=== PATIENT | female | born 1985 | race Caucasian/White ===

== ENCOUNTER → 2016-05-25 | Outpatient (CLI) | payer OTHER ==
[~2016-05-25] MED LIST: ALBU1AER9; ASMTWH INH; CPRUNK; LVNIS40 SQ
[2016-05-25 16:53] LABS: URINE APPEARANCE CLOUDY (CLEAR); URINE BILIRUBIN NEG (NEG); URINE COLOR YELLOW; URINE EPITHELIAL CELL AUTO >30 /lpf (0-5); URINE NITRITE NEG (NEG); URINE PH 6.5 (4.5-7.5); URINE SPECIFIC GRAVITY 1.018 (1.000-1.030); UROBILINOGEN NEG (NEG)
[2016-05-25 16:54] LABS: MANUAL MICROSCOPIC REQUIRED? NO; REVIEW REQ? NO
== END | disposition home or self-care (01) ==
LOC: C.LABSPEC 15:36
PROVIDERS: ATTEND Obstetrics & Gynecology
DX: Z34.82 Encounter for supervision of other normal pregnancy, second trimester (principal)

== ENCOUNTER → 2016-05-28 | Outpatient (CLI) | payer OTHER ==
[2016-05-28 10:25] LABS: BASO % 0.1 %; BASO ABS # 0.01 K/uL (0-0.2); COMPLETE YES; EOS % 1.1 %; HEMATOCRIT 38.5 % (37-47); IG% 0.2 %; LYMPH % 22.1 %; LYMPH ABS # 2.31 K/uL (1.2-3.4); MEAN CELL VOLUME 91.9 fL (80-100); MEAN CORPUSCULAR HEMOGLOBIN 32.2 pg (25-34); MEAN CORPUSCULAR HGB CONC 35.1 g/dl (32-36); MEAN PLATELET VOLUME 10.9 fL (7.4-10.4); MONO % 4.9 %; NEUT % 71.6 %; PLATELET COUNT 228 K/uL (130-400); RED BLOOD COUNT 4.19 M/uL (4.2-5.4); WHITE BLOOD COUNT 10.45 K/uL (4.8-10.8)
[2016-06-01 15:37] LABS: CHLAMYDIA TRACH RNA*** NOT DETECTED (NOT DETECTED); GC (NEIS GONORRHOEAE)RNA** NOT DETECTED (NOT DETECTED)
== END | disposition home or self-care (01) ==
LOC: C.LAB1850 09:06
PROVIDERS: ATTEND Obstetrics & Gynecology
DX: Z34.82 Encounter for supervision of other normal pregnancy, second trimester (principal)

== ENCOUNTER → 2016-07-20 | Outpatient (CLI) | payer OTHER | END | disposition home or self-care (01) | LOC: C.LABSPEC 10:42 | PROVIDERS: ATTEND Obstetrics & Gynecology | DX: N89.8 Other specified noninflammatory disorders of vagina (principal) ==

== ENCOUNTER → 2016-08-10 | Outpatient (CLI) | payer OTHER ==
[2016-08-10 12:33] LABS: MANUAL MICROSCOPIC REQUIRED? NO; REVIEW REQ? YES; URINE APPEARANCE CLOUDY (CLEAR); URINE BILIRUBIN NEG (NEG); URINE COLOR YELLOW; URINE EPITHELIAL CELL AUTO >30 /lpf (0-5); URINE NITRITE NEG (NEG); UROBILINOGEN NEG (NEG)
[2016-08-10 13:07] LABS: HEMATOCRIT 36.5 % (37-47)
[2016-08-10 13:58] LABS: GTGD 50 Grams
== END | disposition home or self-care (01) ==
LOC: C.LAB1850 10:26
PROVIDERS: ATTEND Internal Medicine
DX: O09.92 Supervision of high risk pregnancy, unspecified, second trimester (principal)

== ENCOUNTER → 2016-08-20 | Outpatient (CLI) | payer OTHER | END | disposition home or self-care (01) | LOC: C.LAB1850 07:08 | PROVIDERS: ATTEND Obstetrics & Gynecology | DX: O09.93 Supervision of high risk pregnancy, unspecified, third trimester (principal) ==

== ENCOUNTER → 2016-08-27 | Outpatient (CLI) | payer OTHER ==
[2016-08-27 09:49] LABS: PATIENT HEIGHT 165.1 cm
[2016-08-27 10:47] LABS: URINE TOTAL PROTEIN 9.9 mg/dl (0-11.9)
[2016-08-27 11:45] LABS: URINE TOTAL PROTEIN CALC 236.6 mg/24 hr (0-149.1)
[2016-08-27 12:32] LABS: CREATININE 0.47 mg/dl (0.6-1.2)
== END | disposition home or self-care (01) ==
LOC: C.LAB1850 08:10
PROVIDERS: ATTEND Obstetrics & Gynecology
DX: R63.2 Polyphagia (principal); E83.59 Other disorders of calcium metabolism; E16.1 Other hypoglycemia; O09.93 Supervision of high risk pregnancy, unspecified, third trimester; E72.12 Methylenetetrahydrofolate reductase deficiency

== ENCOUNTER → 2016-09-10 | Outpatient (CLI) | payer OTHER ==
[2016-09-10 08:24] LABS: PATIENT HEIGHT 165.1 cm
[2016-09-10 09:37] LABS: BASO % 0.1 %; BASO ABS # 0.01 K/uL (0-0.2); COMPLETE YES; EOS % 0.8 %; HEMATOCRIT 38.4 % (37-47); IG% 0.3 %; LYMPH % 18.7 %; LYMPH ABS # 2.07 K/uL (1.2-3.4); MEAN CELL VOLUME 93.2 fL (80-100); MEAN CORPUSCULAR HEMOGLOBIN 30.3 pg (25-34); MEAN CORPUSCULAR HGB CONC 32.6 g/dl (32-36); MEAN PLATELET VOLUME 10.3 fL (7.4-10.4); MONO % 6.1 %; PLATELET COUNT 241 K/uL (130-400); RED BLOOD COUNT 4.12 M/uL (4.2-5.4); WHITE BLOOD COUNT 11.09 K/uL (4.8-10.8)
[2016-09-10 10:08] LABS: ALT/SGPT 22 U/L (12-78); AST/SGOT 10 U/L (15-37); CREATININE 0.47 mg/dl (0.60-1.20)
[2016-09-10 10:09] LABS: ALKALINE PHOSPHATASE 75 U/L (45-117); URIC ACID 4.1 mg/dl (2.6-7.2)
[2016-09-10 11:14] LABS: CREATININE 0.47 mg/dl (0.6-1.2); URINE TOTAL PROTEIN CALC 214.5 mg/24 hr (0-149.1)
== END | disposition home or self-care (01) ==
LOC: C.LAB1850 08:15
PROVIDERS: ATTEND Obstetrics & Gynecology
DX: O13.9 Gestational [pregnancy-induced] hypertension without significant proteinuria, unspecified trimester (principal)

== ENCOUNTER → 2016-10-05 | Outpatient (CLI) | payer OTHER ==
[2016-10-05 14:38] LABS: COMPLETE YES; HEMATOCRIT 36.4 % (37-47); IG% 0.3 %; LYMPH % 23.6 %; LYMPH ABS # 2.46 K/uL (1.2-3.4); MEAN CELL VOLUME 91.7 fL (80-100); MEAN CORPUSCULAR HGB CONC 33.8 g/dl (32-36); MEAN PLATELET VOLUME 10.8 fL (7.4-10.4); NEUT % 69.1 %; PLATELET COUNT 231 K/uL (130-400); RED BLOOD COUNT 3.97 M/uL (4.2-5.4); WHITE BLOOD COUNT 10.41 K/uL (4.8-10.8)
[2016-10-05 14:58] LABS: ALT/SGPT 19 U/L (12-78); BLOOD UREA NITROGEN 10 mg/dl (7-18); BUN/CREATININE RATIO 18.8 (10-20); CALCIUM 9.6 mg/dl (8.5-10.1); CARBON DIOXIDE 22 mmol/L (21-32); CHLORIDE 105 mmol/L (98-107); CREATININE 0.51 mg/dl (0.60-1.20); GLUCOSE 88 mg/dl (70-99); POTASSIUM 3.9 mmol/L (3.5-5.1); SODIUM 138 mmol/L (136-145)
[2016-10-05 15:01] LABS: ALB/GLOB RATIO 0.6 (0.9-2); ALKALINE PHOSPHATASE 91 U/L (45-117); AST/SGOT 13 U/L (15-37)
== END | disposition home or self-care (01) ==
LOC: C.LAB1850 13:30
PROVIDERS: ATTEND Obstetrics & Gynecology
DX: O13.3 Gestational [pregnancy-induced] hypertension without significant proteinuria, third trimester (principal)

== ENCOUNTER → 2016-10-08 | Outpatient (CLI) | payer OTHER | END | disposition home or self-care (01) | LOC: C.LABSPEC 17:27 | PROVIDERS: ATTEND Obstetrics & Gynecology | DX: O09.93 Supervision of high risk pregnancy, unspecified, third trimester (principal); Z3A.00 Weeks of gestation of pregnancy not specified ==

== ENCOUNTER → 2016-10-15 | Outpatient (CLI) | payer OTHER ==
[2016-10-15 13:13] LABS: HEMATOCRIT 39.1 % (37-47); MEAN CELL VOLUME 91.6 fL (80-100); MEAN CORPUSCULAR HEMOGLOBIN 30.9 pg (25-34); MEAN CORPUSCULAR HGB CONC 33.8 g/dl (32-36); MEAN PLATELET VOLUME 10.8 fL (7.4-10.4); PLATELET COUNT 254 K/uL (130-400); RED BLOOD COUNT 4.27 M/uL (4.2-5.4); WHITE BLOOD COUNT 10.94 K/uL (4.8-10.8)
[2016-10-15 13:45] LABS: ALB/GLOB RATIO 0.6 (0.9-2); ALKALINE PHOSPHATASE 106 U/L (45-117); ALT/SGPT 18 U/L (12-78); AST/SGOT 12 U/L (15-37); BLOOD UREA NITROGEN 10 mg/dl (7-18); CALCIUM 9.6 mg/dl (8.5-10.1); CARBON DIOXIDE 24 mmol/L (21-32); CHLORIDE 105 mmol/L (98-107); CREATININE 0.52 mg/dl (0.60-1.20); GLUCOSE 67 mg/dl (70-99); SODIUM 137 mmol/L (136-145)
== END | disposition home or self-care (01) ==
LOC: C.LAB1850 11:43
PROVIDERS: ATTEND Obstetrics & Gynecology
DX: O13.3 Gestational [pregnancy-induced] hypertension without significant proteinuria, third trimester (principal)

== ENCOUNTER 2016-10-20 12:03 | Inpatient (IN) | payer OTHER ==
[~2016-10-20] VITALS: Ht 165.1 cm; Wt 100.9 kg
[~2016-10-20 12:03] MED LIST changes: -LVNIS40 SQ
[2016-10-22] MEDS ORDERED: LACTATED RINGER'S 1000ML 1,000 ML IV PRN (13:14)
[2016-10-22] MEDS ORDERED: ONDANSETRON INJ 2 MG/ML 2 ML VIAL IV PRN ×2 (14:00→18:15)
[2016-10-22 14:08] LABS: MEAN CORPUSCULAR HGB CONC 33.8 g/dl (32-36); MEAN PLATELET VOLUME 10.5 fL (7.4-10.4); PLATELET COUNT 237 K/uL (130-400); RED BLOOD COUNT 4.35 M/uL (4.2-5.4)
[2016-10-22 14:28] LABS: ALT/SGPT 16 U/L (12-78); BLOOD UREA NITROGEN 9 mg/dl (7-18); BUN/CREATININE RATIO 17.4 (10-20); CALCIUM 9.7 mg/dl (8.5-10.1); CARBON DIOXIDE 24 mmol/L (21-32); CHLORIDE 105 mmol/L (98-107); GLUCOSE 77 mg/dl (70-99); SODIUM 138 mmol/L (136-145)
[2016-10-22 14:31] LABS: ALB/GLOB RATIO 0.6 (0.9-2); ALKALINE PHOSPHATASE 99 U/L (45-117); AST/SGOT 10 U/L (15-37)
[2016-10-22 14:55] VITALS: Ht 165.1 cm; Wt 100.9 kg
[2016-10-22] MEDS ORDERED: BUPIVACAINE 0.25% 30 ML VIAL ONE (16:59)
[2016-10-22] MEDS ORDERED: FENTANYL CITRATE INJ 50 MCG/1 ML 2 ML VIAL ONE (17:00)
[2016-10-22] MEDS ORDERED: FENTANYL 2MCG/ML ROPIV 1.25MG/ML 100ML BAG EPI ONE (17:00)
[2016-10-22] MEDS ORDERED: EpHEDrine SULFATE INJ 50 MG/ML AMP ONE (17:00)
[2016-10-22] MEDS: LACTATED RINGER'S 1000ML 1,000 ML IV SCH ×2 (17:59→19:10)
[2016-10-22] MEDS ORDERED: LACTATED RINGER'S 1000ML 500 ML IV PRN ×2 (18:00→18:12)
[2016-10-22] MEDS ORDERED: OXYTOCIN 30 UNITS/500ML NSS IV PRN ×2 (18:00→23:00)
[2016-10-22] MEDS ORDERED: NALOXONE HCL INJ 1 MG in SODIUM CHLORIDE 0.9% 1000ML 1,000 ML IV PRN (18:12)
[2016-10-22] MEDS ORDERED: FENTANYL 2MCG/ML ROPIV 1.25MG/ML 100ML BAG EPI PRN (18:15)
[2016-10-22] MEDS ORDERED: NALBUPHINE HCL INJ 10 MG/ML AMP IV PRN (18:15)
[2016-10-22] MEDS ORDERED: EpHEDrine SULFATE INJ 50 MG/ML AMP IV PRN (18:15)
[2016-10-22] MEDS ORDERED: PROMETHAZINE HCL INJ 6.25 MG in SODIUM CHLORIDE 0.9% 50ML 50 ML IV PRN (18:15)
[2016-10-22] MEDS ORDERED: NALOXONE HCL INJ 0.4 MG/1 ML VIAL/CARP IV PRN (18:15)
[2016-10-22] MEDS ORDERED: DiphenhydrAMINE HCL 50 MG/ML VIAL IV PRN (18:15)
[2016-10-22] MEDS ORDERED: SUPERCREAM 0.870 % 15GM JAR EXT PRN (23:00)
[2016-10-22] MEDS ORDERED: HYDROCORTISONE ACETATE 25 MG SUPP PR PRN (23:00)
[2016-10-22] MEDS ORDERED: LANOLIN OINT EXT PRN ×2 (23:00)
[2016-10-22] MEDS ORDERED: BENZOCAINE 20% AER SPR 82.5 GM CAN EXT PRN (23:00)
[2016-10-22] MEDS ORDERED: OXYCODONE/ACETAMINOPHEN 5-325 TAB PO PRN (23:00)
--- NOTE | 2016-10-22 23:21 | Anesthesia Procedure Note ---
Anesthesia Epidural Removal Nt Date & Time Oct 22, 2016 at 23:21 Vital Signs Pain Intensity: 0.0 Notes Mental Status: alert / awake / arousable, participated in evaluation Nausea / Vomiting: adequately controlled Pain: adequately controlled Airway Patency, RR, SpO2: stable & adequate BP & HR: stable & adequate Hydration State: stable & adequate Neuraxial Anesthesia: was administered Anesthetic Complications: no major complications apparent, pt satisfied with anesthetic care Epidural: removed without complications, with tip intact
[2016-10-23] VITALS (7 sets, daily range): BP systolic 112–133; BP diastolic 74–83; PULSE 84–101; TEMP 36.5–37; O2SAT 96–97
[2016-10-23] MEDS: IBUPROFEN 600 MG TAB PO PRN ×4 (05:47→19:03)
[2016-10-23 07:19] LABS: HEMATOCRIT 36.9 % (37-47)
[2016-10-23 07:35] LABS: PROTHROMBIN TIME (PATIENT) 10.4 SECONDS (9.0-12.0)
--- NOTE | 2016-10-23 08:07 | OB/GYN Progress Note ---
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 Subjective conversation w/ patient, physical exam, chart review, lab review Ambulation: limited ambulation (to bathroom) Voiding: no voiding problems Passing Gas: Yes Diet Tolerance: Regular Diet Lochia: Small Feeding Type: Breast Feeding Pain: Denies much pain/cramping Review of Systems Constitutional: No fever, No chills Respiratory: No cough, No shortness of breath Cardiac: No chest pain Abdomen: No nausea, No vomiting, No diarrhea Female : No dysuria Objective Vital Signs Date Time Temp Pulse Resp B/P (MAP) Pulse Ox O2 Delivery O2 Flow Rate FiO2 10/23/16 03:10 36.7 84 20 119/77 (91) 97 Room Air 10/23/16 02:45 36.9 84 16 115/74 (88) 96 Room Air 10/23/16 01:30 37.0 96 16 114/76 (89) 96 Room Air 10/23/16 01:30 96 Room Air Physical Exam General Appearance: WELL-APPEARING, WD/WN, NO APPARENT DISTRESS Respiratory/Chest: no respiratory distress Cardiovascular: regular rate, rhythm Abdomen: non tender, soft Fundus: Firm, Tender (minimal, appropriate), Relation to Umbilicus (at umbilicus) Extremities: normal range of motion, non-tender, no pedal edema, no calf tenderness Exam by Dr. Diane Laboratory Results Last 24 Hours Test 10/22/16 13:55 10/23/16 06:34 White Blood Count 12.00 K/uL Red Blood Count 4.35 M/uL Hemoglobin 13.5 g/dL 12.2 g/dL Hematocrit 40.0 % 36.9 % Mean Corpuscular Volume 92.0 fL Mean Corpuscular Hemoglobin 31.0 pg Mean Corpuscular Hemoglobin Concent 33.8 g/dl RDW Standard Deviation 44.1 fL RDW Coefficient of Variation 13.1 % Platelet Count 237 K/uL Mean Platelet Volume 10.5 fL Sodium Level 138 mmol/L Potassium Level 4.0 mmol/L Chloride Level 105 mmol/L Carbon Dioxide Level 24 mmol/L Anion Gap 9.0 mmol/L Blood Urea Nitrogen 9 mg/dl Creatinine 0.50 mg/dl Estimated GFR () 147.4 Estimated GFR (Non- 127.2 BUN/Creatinine Ratio 17.4 Random Glucose 77 mg/dl Calcium Level 9.7 mg/dl Total Bilirubin 0.5 mg/dl Aspartate Amino Transf (AST/SGOT) 10 U/L Alanine Aminotransferase (ALT/SGPT) 16 U/L Alkaline Phosphatase 99 U/L Total Protein 6.8 gm/dl Albumin 2.6 gm/dl Globulin 4.2 gm/dl Albumin/Globulin Ratio 0.6 Prothrombin Time 10.4 SECONDS Prothromb Time International Ratio 1.0 Assessment and Plan Post- Day Number: 1 Continue Routine Care: 31yo s/p vaginal delivery, now PPD #1. - Blood type O positive. GBS negative. Rubella immune. - Vital signs reviewed and stable. - Pain controlled with motrin. - No leg swelling or tenderness on calf palpation. Encourage ambulation. - Encourage breast feeding. - Hemoglobin pre-delivery 13.5, post-delivery 12.2. Bleeding has improved. Continue to monitor clinically. - Continue post-vaginal delivery care. Resume lovenox this morning, plan x 6 weeks post-. - Pt agreed with above plan, all current questions answered. Don Salazar MD, PGY1 Service Center Manager Physician Supervision Note: I was present with Dr. Salazar during the history and exam. I discussed the case with the resident and agree with the findings and plan as documented in the note. Any exceptions or clarifications are listed here: PPD#1 doing well. Continue routine care. Documented By: Brenda Diane Resident Tracking Resident Involvement: Resident Care Provided Care Provided: OB Delivery (morning rounds)
[2016-10-23] MEDS: DOCUSATE SODIUM 100 MG CAP PO SCH ×2 (08:26→19:03)
[2016-10-23] MEDS: PRENATAL VITAMIN TAB PO SCH (08:26)
[2016-10-23] MEDS: ENOXAPARIN 40 MG/0.4 ML SYR SQ SCH (08:29)
--- NOTE | 2016-10-23 09:00 | DELIVERY SUMMARY ---
DATE OF OPERATION: 10/22/2016 DATE OF DELIVERY: 10/22/2016 PREDELIVERY DIAGNOSES: 1. 31-year-old G4, P2-0-1-2 at 38 weeks 2 days. 2. Induction of labor secondary to gestational hypertension. 3. History of pulmonary embolism at age 15 while on combined oral contraceptives. POSTDELIVERY DIAGNOSES: 1. 31-year-old G4, P2-0-1-2 at 38 weeks 2 days. 2. Induction of labor secondary to gestational hypertension. 3. History of pulmonary embolism at age 15 while on combined oral contraceptives. PROCEDURE: Spontaneous vaginal delivery and repair of first degree perineal laceration. DELIVERING PHYSICIAN: Dr. Brenda Diane. FINDINGS: Viable male with Apgars 8 and 9, weight pending. Please see nursing records with true double knot in umbilical cord. DESCRIPTION OF PROCEDURE: The patient progressed to complete under epidural anesthesia. She then began to push and spontaneously vaginally delivered a viable male from the cephalic presentation. The head delivered in the left occiput anterior position followed by the anterior then posterior shoulder followed by the body. The umbilical cord was unwound from the baby's body and the baby was placed on mother's abdomen. Cord was doubly clamped and cut and spontaneous cry was heard. The baby was handed off to the awaiting pediatrics nurse. Cord segment was obtained. Cord blood was obtained and the placenta delivered spontaneously intact with a 3-vessel cord. The uterus became firm, Pitocin was given. The uterus and vagina were swept of all clots and debris. The cervix, vagina and perineum were inspected and a first degree perineal laceration was noted and repaired in standard fashion with 3-0 Vicryl. Excellent hemostasis was observed. Mother and baby tolerated the delivery well. Sponge, instrument and needle counts were correct x2 at the conclusion of the delivery. I attest to the content of the Intraoperative Record and any orders documented therein. Any exception s are noted below.
[2016-10-23] MEDS ORDERED: BISACODYL 5 MG TABEC PO SCH (20:00)
[2016-10-24 00:50] VITALS: BP 118/79; PULSE 76; TEMP 36.4; O2SAT 97
[2016-10-24] MEDS: IBUPROFEN 600 MG TAB PO PRN ×3 (01:05→11:35)
[2016-10-24] MEDS ORDERED: BISACODYL 10 MG SUPP PR PRN (07:00)
[2016-10-24] MEDS: PRENATAL VITAMIN TAB PO SCH (08:38)
[2016-10-24] MEDS: DOCUSATE SODIUM 100 MG CAP PO SCH (08:38)
[2016-10-24] MEDS: ENOXAPARIN 40 MG/0.4 ML SYR SQ SCH (08:49)
[2016-10-24 09:00] VITALS: BP 121/85; PULSE 86; TEMP 36.8; O2SAT 99
--- NOTE | 2016-10-24 09:29 | Progress Note ---
Subjective Oct 24, 2016. Subjective conversation w/ patient, physical exam Ambulation: ambulating normally Voiding: no voiding problems Passing Gas: Yes Diet Tolerance: Regular Diet Lochia: Moderate Feeding Type: Breast Feeding Review of Systems Constitutional: No fever Respiratory: No cough Cardiac: No chest pain Abdomen: No nausea, No vomiting Objective Vital Signs Date Time Temp Pulse Resp B/P (MAP) Pulse Ox O2 Delivery O2 Flow Rate FiO2 10/24/16 00:50 36.4 76 19 118/79 (92) Room Air 10/24/16 00:50 97 Room Air 10/23/16 19:00 36.7 99 20 133/83 (100) Room Air 10/23/16 15:30 36.5 101 20 119/83 (95) Room Air 10/23/16 15:30 Room Air 10/23/16 13:05 36.9 86 18 119/77 (91) Room Air Physical Exam General Appearance: WELL-APPEARING, NO APPARENT DISTRESS Respiratory/Chest: no respiratory distress, no accessory muscle use Cardiovascular: no edema Abdomen: non tender, soft Fundus: Firm Extremities: no pedal edema, no calf tenderness Assessment and Plan Post- Day#: 2 Continue Routine Care: Lovenox 6wk PP
[2016-10-24] MEDS ORDERED: LVNIS40 SQ (09:30)
--- NOTE | 2016-10-24 09:30 | Discharge Instructions ---
Discharge Instructions Date of Service Oct 24, 2016. Admission Reason for Admission: Induction Discharge Discharge Diagnosis / Problem: vaginal delivery Discharge Goals Goal(s): Routine recovery after delivery Activity Recommendations Activity Limitations: per Instructions/Follow-up section . Instructions / Follow-Up Instructions / Follow-Up ACTIVITY RECOMMENDATIONS: * Gradual return to full activity over the next 2-3 weeks. * No lifting - nothing heavier than baby over the next 2-3 weeks. * Do not engage in vigorous exercise, sexual activity or sports until cleared by your physician. * Do not drive or operate any motorized equipment until cleared by your physician. * You may shower/bathe daily. MEDICATIONS: For discomfort or pain, you may use Acetaminophen (Tylenol), Ibuprofen (Advil), or Naproxen (Aleve) following the package directions. For constipation you may use Colace following the package directions. BREAST CARE: If you are not breast feeding: * Wear a supportive bra 24 hours a day for one to two weeks. * Avoid stimulating your breasts and nipples as much as possible during the first few weeks after delivery. * When taking a shower, have the warm water hit your back, not breasts. * When your breasts feel full, apply ice packs. Usually three to four times a day helps ease the discomfort. * Take a mild pain medication (Tylenol / Motrin) when you are uncomfortable. If breast feeding: * Use breast milk to lubricate nipples. Lansinoh cream may be used for sore nipples. You do not need to remove cream prior to breast feeding. If using a different brand of cream, check the label for directions regarding removal of cream prior to nursing. * Wear a supportive bra. * If having problems with breasts or breast feeding, call a store consultant or your health care provider. EPISIOTOMY CARE: After delivery, if you have an episiotomy (stitches), the following steps will ease discomfort and aid healing. * For the first 24 hours after delivery, place ice packs next to your episiotomy to help reduce swelling. * After the first 24 hour-period, sitz baths, either portable or in the tub, are suggested. A shower with a shower arm sprayed over the episiotomy may be comforting. * Tiana care should be done after each voiding and bowel movement. Squirt warm water from a plastic bottle over the perineum (region of the body between the anus and urinary opening) and pat dry. * Use Dermoplast to ease discomfort. Shake container. Simon directly over the episiotomy. Place a Tucks on a clean sanitary pad next to your episiotomy. SPECIAL CARE INSTRUCTIONS: When you are discharged from the hospital, it is important for you to follow the instructions listed below: * During the first week at home, you should be able to care for yourself and your baby. In addition, the usual light household activities are encouraged. * Limit your activities to the way you feel. Do not try to clean the house or move furniture. Be sensible. * If you actively engage in sports and have done so up until the time of your delivery, you may resume these activities as soon as you feel able. This may take up to one month or even longer. Use good judgment. * Continue to take your vitamins for at least six weeks after the of your baby. * Your diet need not be limited unless you were on a special diet before your delivery. Breast-feeding mothers need around 2500 calories per day and at least 64-80 ounces of fluid per day (8 to 10 glasses). * You should eat foods from the four major food groups. Crash diets or fad diets are to be avoided. Eating lean meats, fresh fruits and vegetables, low-fat dairy products, high fiber foods and a regular exercise program, will help you get back to your pre- weight without putting your health at risk. * Constipation is sometimes a problem after delivery. Take a mild laxative as needed. If breast feeding, Milk of Magnesia is acceptable to use. You may use a suppository or Fleets enema if no episiotomy. * A daily shower or tub bath is suggested. Be sure to thoroughly and gently dry the perineum. * A bloody vaginal discharge will usually continue until around four weeks post . A small amount of bleeding may continue for as long as six weeks. Vaginal discharge changes from the bright red bleeding after delivery to pink then brownish and finally yellowish-pink before becoming white and disappearing. * Bleeding may increase with activity. Your first period may come in 4-8 weeks. If you are breast feeding, your period may be delayed even longer. * [place] (sex) can begin whenever both you and your partner feel comfortable and do not have any form of genital infection. It is recommended that you wait at least six weeks for internal and external healing to occur. If you have questions, please talk to your health care practitioner. A condom should be used to prevent infection and . * Foreplay, gentle intercourse and lubrication is very important the first several times to prevent pain. A water-based lubricant such as K-Y jelly or Astroglide may be used. * If you have RH negative blood and your baby is RH positive, you will receive RHOGAM by injection prior to discharge. The nurse will give you a card to keep with you that has the date and place that you received RHOGAM after delivery. * During your care, you had a Rubella screen done to check for the presence of rubella antibodies in your blood. If your test was negative, you will receive a Rubella vaccine prior to discharge. This vaccine may cause a fever, soreness at the injection site and flu-like symptoms. If these symptoms persist, notify your health care practitioner. is not advised for one month after a Rubella vaccine. * Verbalizes understanding of car seat law as reviewed with patient nursing. * Car Seat hand-out given and reviewed with patient by nursing. * Shaken baby information reviewed with patient by nursing. Call you doctor if: * Heavy bleeding (saturating several pads an hour) or passing clots the size of your fist. * A fever >101 degrees F (38.3 degrees C) on two occasions four hours apart and /or chills. * Unusual pain in the pelvic or vaginal areas. * "Baby Blues" lasting longer than two weeks. If you have any questions or concerns, call your health care practitioner at . FOLLOW UP VISIT: * Please call the office at to schedule a 6 week examination. It is important you keep this appointment. It is important for you to make arrangements for either yearly or twice yearly check-ups thereafter. Current Hospital Diet Patient's current hospital diet: Regular OB Diet Discharge Diet Recommended Diet: Regular Diet Pending Studies Studies pending at discharge: no Medical Emergencies . Who to Call and When: Medical Emergencies: If at any time you feel your situation is an emergency, please call 911 immediately. . Non-Emergent Contact Non-Emergency issues call your: Primary Care Provider . . "Provider Documentation" section prepared by Radha Maurice. . VTE Core Measure Inpt VTE Proph given/why not?: Enoxaparin (Lovenox)SQ
[2016-10-24 12:50] VITALS: BP_DIAS 85; PULSE 86; TEMP 36.8
== END 2016-10-24 12:50 | disposition home or self-care (01) | DRG 775 ==
LOC: C.LD 10-22 13:03 → C.OBG 10-23 00:54
PROVIDERS: ADMIT Obstetrics & Gynecology; ATTEND Obstetrics & Gynecology
PROC: 3E033VJ Introduction of Other Hormone into Peripheral Vein, Percutaneous Approach (ICD-10-PCS; principal; 2016-10-22)
PROC: 0HQ9XZZ Repair Perineum Skin, External Approach (ICD-10-PCS; principal; 2016-10-22)
PROC: 10E0XZZ Delivery of Products of Conception, External Approach (ICD-10-PCS; principal; 2016-10-22)
DX: O13.4 Gestational [pregnancy-induced] hypertension without significant proteinuria, complicating childbirth (principal); E72.12 Methylenetetrahydrofolate reductase deficiency; O70.0 First degree perineal laceration during delivery; O99.284 Endocrine, nutritional and metabolic diseases complicating childbirth; Z37.0 Single live birth; Z3A.38 38 weeks gestation of pregnancy; Z86.711 Personal history of pulmonary embolism

== ENCOUNTER → 2016-12-02 | Outpatient (CLI) | payer OTHER ==
[~2016-12-02] MED LIST changes: -ASMTWH INH; +LVNIS40 SQ
== END | disposition home or self-care (01) ==
LOC: C.PAPS 09:55
PROVIDERS: ATTEND Obstetrics & Gynecology
DX: Z39.2 Encounter for routine postpartum follow-up (principal)

== ENCOUNTER → 2016-12-15 | Outpatient (CLI) | payer OTHER | END | disposition home or self-care (01) | LOC: C.PATHSPEC 13:25 | PROVIDERS: ATTEND Obstetrics & Gynecology | DX: R87.810 Cervical high risk human papillomavirus (HPV) DNA test positive (principal) ==

== ENCOUNTER 2025-02-15 07:10 | Inpatient (IN) ==
[2025-02-15] MEDS: SODIUM CHLORIDE 0.9% 1,000 ML IV STA (07:52)
[2025-02-15] MEDS: ALBUT/IPRATROP 3MG/0.5MG NEB 3 ML VIAL NEB STA (07:53)
[2025-02-15] MEDS: ACETAMINOPHEN 1,000 MG/100 ML VIAL IV STA (08:02)
[2025-02-15 08:03] LABS: Hematocrit (blood only) 37.9 % (37.0-47.0); Hemoglobin 13.0 g/dL (12.0-16.0); Immature Granulocytes # (auto) 0.04 K/uL (0.01-0.20); Immature Granulocytes % (auto) 0.4 %; Mean Corpuscular Hemoglobin 29.8 pg (25.0-34.0); Mean Corpuscular Volume 86.9 fL (80.0-100.0); Platelet Count 297 K/uL (130-400); RDW Standard Deviation 41.7 fL (36.4-46.3); Red Blood Count 4.36 M/uL (4.20-5.40); White Blood Count 10.36 K/ul (4.8-10.8)
[2025-02-15 08:22] LABS: Alanine Aminotransferase 20 U/L (7-52); Albumin Globulin Ratio 1.4 (0.9-2); Albumin Level 4.0 gm/dl (3.4-5.0); Alkaline Phosphatase 47 U/L (34-104); Anion Gap 9 (3-11); Bilirubin,Total 0.5 mg/dl (0.2-1.0); Blood Urea Nitrogen 9 mg/dl (6-23); Calcium 8.7 mg/dl (8.6-10.3); Carbon Dioxide 25 mmol/L (21-32); Chloride 106 mmol/L (98-107); Creatinine Clr Calc Pharmacy 144.0 ml/min; Globulin 2.9 gm/dl (2.5-4.0); Glucose 111 mg/dl (70-99(Fasting)); Lipase 19 U/L (11-82); Magnesium 2.0 mg/dl (1.7-2.4); Potassium 3.4 mmol/L (3.5-5.1); Pregnancy Test, Serum Negative (Negative); Sodium 140 mmol/L (136-145); Total Protein 6.9 gm/dl (6.0-8.3)
[2025-02-15 09:14] LABS: Chlamydia pneumoniae PCR Not Detected (NotDetected); Coronavirus 229E PCR Not Detected (NotDetected); Coronavirus CoV-2 (COVID19)PCR Not Detected (NotDetected); Coronavirus HKU1 PCR Not Detected (NotDetected); Coronavirus NL63 PCR Not Detected (NotDetected); Coronavirus OC43PCR Not Detected (NotDetected); Human Metapneumovirus PCR Not Detected (NotDetected); Parainfluenza Virus 1 PCR Not Detected (NotDetected); Parainfluenza Virus 2 PCR Not Detected (NotDetected); Parainfluenza Virus 3 PCR Not Detected (NotDetected); Parainfluenza Virus 4 PCR Not Detected (NotDetected); Respiratory Syncytial VirusPCR Not Detected (NotDetected); Rhinovirus/Enterovirus PCR Not Detected (NotDetected)
[2025-02-15 09:22] LABS: INR 1.0 (0.9-1.1); Partial Thromboplastin Time 29 Seconds (21-31); Prothrombin Time 11.0 Seconds (9.0-12.0)
--- NOTE | 2025-02-15 09:47 | XRay Report ---
XR chest 2V PA/lateral HISTORY: 40 years-old Female Chest pain, nonspecific COMPARISON: 01/31/2025 TECHNIQUE: PA and lateral views of the chest FINDINGS: Cardiomediastinal and hilar silhouettes are within normal limits. No pneumothorax, pleural effusion, airspace consolidation or pulmonary edema. Spondylotic spurring of the spine. IMPRESSION: No acute process. ACT 112: Negative or not required by law. The above report was generated using voice recognition software. It may contain grammatical, syntax o r spelling errors. Electronically signed by: Rajeev Funes M.D. 02/15/2025 9:46 AM
--- NOTE | 2025-02-15 11:23 | Emergency Department Note ---
Impression & Plan Shortness of breath, Asthma ED Provider Note CHIEF COMPLAINT: Breathing difficulties HISTORY OF PRESENTING ILLNESS: Patient is a 40-year-old female presents emergency department today for complaints of breathing difficulties. Patient reports being seen here at [facility] as well as [facility] multiple times for this breathing trouble. She states that she has a history of asthma but it has been stable throughout her life without medications. About a month ago she was diagnosed with rhinovirus and since then she has had worsening symptoms and difficulty breathing. She has been using albuterol nebulizers at home, has been on 3 different antibiotics in the past month and on a steroid tapering dose and reports no changes. Patient has had significant PE workups that have been negative. She states her last visit [facility] they said the next up would be admission for bronchoscopy and the patient is requesting that today. She denies any fevers/chills, chest pain, abdominal pain, nausea, vomiting. REVIEW OF SYSTEMS: See HPI for pertinent positives and pertinent negatives. ALLERGIES: See below MEDICATIONS: See below PAST MEDICAL HISTORY: See below PHYSICAL EXAM: VITALS: Vitals are noted on the nurse's note and reviewed by myself. GENERAL: Non toxic, in no acute distress, non-diaphoretic. SKIN: Capillary refill <2 sec. MOUTH: No erythema to the pharynx or postnasal drainage. Mucous membranes moist. Uvula midline. Airway patent. NECK: Supple without nuchal rigidity. HEART: Regular rate and rhythm without murmurs gallops or rubs. LUNGS: Clear to auscultation bilaterally without wheezes, rales or rhonchi. No retractions or accessory muscle use. ABDOMEN: Positive bowel sounds x 4. Normal tympanic percussion. Soft, nontender to palpation. MUSCULOSKELETAL: No gross musculoskeletal defects. NEURO: Patient was alert and oriented. No focal neurological deficits. DIFFERENTIAL DIAGNOSIS: Differential diagnosis includes acute coronary syndrome, pulmonary embolism, pneumothorax, pericarditis, myocarditis, endocarditis, anxiety, musculoskeletal pain, GERD, costochondritis, pneumonia, among others. ED COURSE AND MEDICAL DECISION MAKING: HISTORY FROM INDEPENDENT HISTORIAN: History was provided by the patient. 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 Patient was placed on the coal equipment operator and continuous pulse ox. Patient was noted to be in normal sinus rhythm at an initial rate of 82 bpm per my interpretation. EKG: EKG was interpreted by myself as normal sinus rhythm at a rate of 86 bpm. INTERPRETATION OF LABS: I interpreted the labs with full lab results as below in the lab section of this note. Laboratory results pertinent to the emergent complaint are discussed in the MDM section below. The patient was advised to follow up with their PCP and/or specialist(s) for further outpatient monitoring and management of any abnormal results. INTERPRETATION OF IMAGING: Imaging studies were interpreted by myself and read by radiology as per the imaging section of this note. The patient was advised to follow up with their PCP and/or specialist(s) for further outpatient management of any non-emergent abnormal findings. CHRONIC MEDICAL/SOCIAL CONDITIONS AFFECTING CARE: No social concerns were identified as barriers to patients care. EXTERNAL RECORDS REVIEWED: Patient's primary care visit from 02/08/2025 and 02/14/2025. I also reviewed the patient's pulmonology visit from 02/01/2025. ESCALATION OF CARE CONSIDERED: I considered admission on this patient due to ongoing and persistent shortness of breath. I spoke with Dr. Chopra for admission. CONSULTATIONS: I had a meaningful discussion about this patient with Dr. Momin who agrees with my assessment and the treatment plan. I also consulted with Dr. Chopra for admission. SUMMARY: I examined the patient for complaints of shortness of breath that has been ongoing for several weeks. A physical exam and history were performed. Nursing notes, EMR, and medication list were personally reviewed. CBC showed no leukocytosis, anemia, thrombocytopenia. PT/INR and APTT were normal. D-dimer was less than 190. CMP showed no emergent findings. Magnesium was 2.0. Troponin was less than 2.3. Lipase was 19. hCG qualitative was negative. Bio fire was negative. Chest x-ray showed no acute findings. With the patients previous history of PE, d-dimer was negative and with her recent CTAs of the chest, I dont feel repeat is indicated. Patient had a duoneb with mild improvement in breathing. She was also given 1L NSS and 1 g of Tylenol IV with improvement in pain and discomfort. I did discuss discharge versus admission with the patient who was requesting admission at this time due to [facility] telling her that the next up would be admission for bronchoscopy. I did consult with who accepts the patient for admission. DIAGNOSIS: Shortness of breath TREATMENT PLAN/DISCHARGE INSTRUCTIONS: Admit to hospitalist services. The chart was completed utilizing [employer] Speech voice recognition software.Grammatical errors, random word insertions, pronoun errors, and incomplete sentences are an occasional consequence of this system due to software limitations, ambient noise, and hardware issues.Any formal questions or concerns about the content, text, or information contained within the body of this dictation should be directly addressed to the physician for clarification. Past Med/Surg History Problem List (Updated 02/15/25 @ 12:16 by TYE Wylie) Shortness of breath (Acute) Shortness of breath Situational anxiety (Chronic) Pap smear of cervix shows high risk HPV present (Acute) Obesity (Acute) Depression (Acute) Asthma (Acute) Medical History PTSD (post-traumatic stress disorder) MTHFR mutation (methylenetetrahydrofolate reductase) Pulmonary embolism Gestational hypertension Surgical History Novinger teeth removed No significant past surgical history Family History Grandfather Colorectal cancer Father Diabetes Hypertension Denies family history of Ovarian cancer Prostate cancer Myocardial infarction Breast cancer Lung cancer Stroke Social History Smoking Status: Never smoker Tobacco Type: Cigarettes Age Started Using Tobacco: 15; Age Quit Using Tobacco: 33; packs per day: 0.5; Cigarettes Per Day: 1-2/daily; Second Hand Exposure: No; Do You Dip or Chew Tobacco: No; Hx Alcohol Use: No Hx Substance Use: No Preferred Language: Mohawk Communication Ability: Effective Visual Impairment: No Limitations Hearing Ability: Normal Finished Goods Inspector Required: No marital status: / Current Living Situation: Family Current Living Situation Comment: living childrenc current occupational status: employed 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 How many Children do You have: 3 Feels Safe at Home: Yes Childhood Exposure to Second-Hand Smoke: Yes Diet: regular caffeine: No during the past year weight has: increased > 10 lbs Dental Care, Regularly: Yes Physical Activity Frequency: 5-6 Times per Week Seatbelt Use: always Sunscreen Use: Yes Assistive Devices: Glasses Allergies Allergies Allergy/AdvReac Type Severity Reaction Status Date / Time [facility] Allergy Verified 02/14/25 08:52 Home Meds Home Medications Medication Instructions Recorded Confirmed ketoconazole 2 % shampoo 1 applic topical DIRECTED 07/30/21 02/15/25 ketoconazole 2 % topical cream 1 applic topical DIRECTED 02/08/25 02/15/25 metronidazole 0.75 % topical cream 1 applic topical DAILY 02/08/25 02/15/25 mometasone 220 mcg/actuation(120 0 inh inhalation BID 02/14/25 02/15/25 doses)breath activated powder inhaler (Asmanex Twisthaler) prednisone 10 mg tablet 10 mg PO UD 02/15/25 02/15/25 tiotropium bromide 2.5 1 puff inhalation BID 02/15/25 02/15/25 mcg/actuation mist for inhalation (Spiriva Respimat) Previous Rx's Medication Instructions Recorded albuterol sulfate 90 mcg/actuation 1 - 2 puff inhalation Q4 PRN 06/19/24 aerosol inhaler Shortness Of Breath Or Wheezing #8.5 grams ipratropium 0.5 mg-albuterol 3 mg 3 ml inhalation QID PRN Shortness 01/23/25 (2.5 mg base)/3 mL nebulization Of Breath Or Wheezing #360 mL soln sodium chloride 0.9 % for 1 ml inhalation Q2H PRN shortness 02/14/25 nebulization of breath or wheezing #500 mL Results & Data (ED) Vital Signs Vital Signs - 24 hr 02/15/25 07:15 02/15/25 07:33 02/15/25 07:46 Temperature 36.6 C Temperature Source Temporal Artery Scan Pulse Rate 99 H 96 H 114 H Pulse Rate [Left Finger] Pulse Rate from SpO2 Sensor 96 H Respiratory Rate 22 15 Respiratory Effort / Characteristics Blood Pressure 164/99 H 142/94 H Blood Pressure [Left Arm] Blood Pressure Mean 120 110 Blood Pressure Mean [Left Arm] Blood Pressure Position Sitting Pulse Oximetry 99 100 Oxygen Delivery Method Room Air Sepsis Recent Fever Within 48 Hours No Sepsis New/Unexplained Change in Mental Status No Sepsis Action Taken by Nursing No Action Required 02/15/25 07:50 02/15/25 07:56 02/15/25 07:56 Temperature Temperature Source Pulse Rate Pulse Rate [Left Finger] Pulse Rate from SpO2 Sensor Respiratory Rate Respiratory Effort / Characteristics Short of Breath Blood Pressure 143/89 H Blood Pressure [Left Arm] Blood Pressure Mean 106 Blood Pressure Mean [Left Arm] Blood Pressure Position Pulse Oximetry Oxygen Delivery Method Room Air Sepsis Recent Fever Within 48 Hours Sepsis New/Unexplained Change in Mental Status Sepsis Action Taken by Nursing 02/15/25 08:00 02/15/25 08:30 02/15/25 09:31 Temperature Temperature Source Pulse Rate 79 84 Pulse Rate [Left Finger] Pulse Rate from SpO2 Sensor 82 84 Respiratory Rate 12 18 Respiratory Effort / Characteristics Blood Pressure 124/82 Blood Pressure [Left Arm] Blood Pressure Mean 88 Blood Pressure Mean [Left Arm] Blood Pressure Position Pulse Oximetry 100 99 Oxygen Delivery Method Sepsis Recent Fever Within 48 Hours Sepsis New/Unexplained Change in Mental Status Sepsis Action Taken by Nursing 02/15/25 10:00 02/15/25 10:30 02/15/25 10:30 Temperature Temperature Source Pulse Rate 89 86 Pulse Rate [Left Finger] Pulse Rate from SpO2 Sensor 87 85 Respiratory Rate 19 14 Respiratory Effort / Characteristics Blood Pressure 104/86 141/92 H 141/92 H Blood Pressure [Left Arm] Blood Pressure Mean 92 108 121 Blood Pressure Mean [Left Arm] Blood Pressure Position Pulse Oximetry 97 96 Oxygen Delivery Method Sepsis Recent Fever Within 48 Hours Sepsis New/Unexplained Change in Mental Status Sepsis Action Taken by Nursing 02/15/25 10:30 02/15/25 11:00 02/15/25 12:30 Temperature Temperature Source Pulse Rate 82 Pulse Rate [Left Finger] 88 Pulse Rate from SpO2 Sensor 83 Respiratory Rate 17 20 Respiratory Effort / Characteristics Blood Pressure 141/92 H Blood Pressure [Left Arm] 133/78 Blood Pressure Mean 121 Blood Pressure Mean [Left Arm] 96 Blood Pressure Position Pulse Oximetry 100 98 Oxygen Delivery Method Sepsis Recent Fever Within 48 Hours Sepsis New/Unexplained Change in Mental Status Sepsis Action Taken by Nursing 02/15/25 16:00 Temperature Temperature Source Pulse Rate Pulse Rate [Left Finger] 72 Pulse Rate from SpO2 Sensor Respiratory Rate 20 Respiratory Effort / Characteristics Blood Pressure Blood Pressure [Left Arm] 135/72 Blood Pressure Mean Blood Pressure Mean [Left Arm] 93 Blood Pressure Position Pulse Oximetry 96 Oxygen Delivery Method Room Air Sepsis Recent Fever Within 48 Hours Sepsis New/Unexplained Change in Mental Status Sepsis Action Taken by Nursing Laboratory Data 02/15/25 07:49 02/15/25 07:49 Lab Results 02/15/25 02/15/25 02/15/25 Range/Units 07:49 08:12 08:44 WBC 10.36 (4.8-10.8) K/ul RBC 4.36 (4.20-5.40) M/uL Hgb 13.0 (12.0-16.0) g/dL Hct 37.9 (37.0-47.0) % MCV 86.9 (80.0-100.0) fL MCH 29.8 (25.0-34.0) pg MCHC 34.3 (32.0-36.0) g/dL RDW Std Deviation 41.7 (36.4-46.3) fL RDW Coeff of Pavel 13.2 (11.5-14.5) % Plt Count 297 (130-400) K/uL MPV 9.0 L (9.4-12.4) fL Immature Gran % (Auto) 0.4 % Neut % (Auto) 61.0 % Lymph % (Auto) 31.9 % [place] % (Auto) 5.6 % Eos % (Auto) 0.7 % Baso % (Auto) 0.4 % Neut # (Auto) 6.33 (1.40-6.50) K/uL Lymph # (Auto) 3.30 (1.20-3.40) K/uL [place] # (Auto) 0.58 (0.11-0.59) K/uL Eos # (Auto) 0.07 (0.00-0.50) K/uL Baso # (Auto) 0.04 (0.00-0.20) K/uL Immature Gran # (Auto) 0.04 (0.01-0.20) K/uL PT Cancelled 11.0 INR Cancelled 1.0 APTT Cancelled 29 PTT Ratio Cancelled 1.1 D-Dimer Cancelled < 190 Sodium 140 (136-145) mmol/L Potassium 3.4 L (3.5-5.1) mmol/L Chloride 106 (98-107) mmol/L Carbon Dioxide 25 (21-32) mmol/L Anion Gap 9 (3-11) BUN 9 (6-23) mg/dl Creatinine 0.60 (0.6-1.2) mg/dl Est Cr Clr Drug Dosing 144.0 ml/min eGFR 114.86 BUN/Creatinine Ratio 15.0 (10-20) Glucose 111 H (70-99(Fasting)) mg/dl Calcium 8.7 (8.6-10.3) mg/dl Magnesium 2.0 (1.7-2.4) mg/dl Total Bilirubin 0.5 (0.2-1.0) mg/dl AST 11 L (13-39) U/L ALT 20 (7-52) U/L Alkaline Phosphatase 47 (34-104) U/L Troponin I High Sens < 2.3 (0-14) pg/ml Total Protein 6.9 (6.0-8.3) gm/dl Albumin 4.0 (3.4-5.0) gm/dl Globulin 2.9 (2.5-4.0) gm/dl Albumin/Globulin Ratio 1.4 (0.9-2) Lipase 19 (11-82) U/L HCG, Qual Negative (Negative) Adenovirus (PCR) Not Detected (NotDetected) B. pertussis DNA (PCR) Not Detected (NotDetected) B.parapertussis DNA PCR Not Detected (NotDetected) C. pneumoniae DNA (PCR) Not Detected (NotDetected) Coronavirus OC43 (PCR) Not Detected (NotDetected) Coronavirus HKU1 (PCR) Not Detected (NotDetected) Coronavirus 229E (PCR) Not Detected (NotDetected) SARS-CoV-2 (PCR) Not Detected (NotDetected) Coronavirus NL63 (PCR) Not Detected (NotDetected) Human Metapneumovir PCR Not Detected (NotDetected) Influenza Type A (PCR) Not Detected (NotDetected) Influenza Type B (PCR) Not Detected (NotDetected) M. pneumoniae (PCR) Not Detected (NotDetected) Parainfluenza 1 (PCR) Not Detected (NotDetected) Parainfluenza 2 (PCR) Not Detected (NotDetected) Parainfluenza 3 (PCR) Not Detected (NotDetected) Parainfluenza 4 (PCR) Not Detected (NotDetected) RSV (PCR) Not Detected (NotDetected) Entero/Rhino (PCR) Not Detected (NotDetected) Administered Medications Albuterol (Albut/Ipratrop 3mg/0.5mg Neb 3 Ml Vial) 3 ml INH Q4R TORRES Stop: 03/17/25 14:59 Last Admin: 02/15/25 15:08 Dose: 3 ml Documented By: MARIELOS Discontinued Medications Albuterol (Albut/Ipratrop 3mg/0.5mg Neb 3 Ml Vial) 3 ml NEB NOW STA; Protocol Stop: 02/15/25 07:38 Last Admin: 02/15/25 07:53 Dose: 3 ml Documented By: CEF Sodium Chloride (Nss) 1,000 mls @ 999 mls/hr IV .Q1H1M STA Stop: 02/15/25 08:37 Last Admin: 02/15/25 07:52 Dose: 999 mls/hr Documented By: CEF Acetaminophen (Ofirmev) 1,000 mg in 100 mls @ 400 mls/hr IV NOW STA Stop: 02/15/25 08:12 Last Infusion: 02/15/25 09:41 Dose: Infused Documented By: Admin: 02/15/25 08:02 Dose: 400 mls/hr Documented By: CEF Imaging Data Radiologist's Impression: Chest X-Ray 02/15/25 07:37 XR chest 2V PA/lateral HISTORY: 40 years-old Female Chest pain, nonspecific COMPARISON: 01/31/2025 TECHNIQUE: PA and lateral views of the chest FINDINGS: Cardiomediastinal and hilar silhouettes are within normal limits. No pneumothorax, pleural effusion, airspace consolidation or pulmonary edema. Spondylotic spurring of the spine. IMPRESSION: No acute process. ACT 112: Negative or not required by law. The above report was generated using voice recognition software. It may contain grammatical, syntax or spelling errors. Electronically signed by: Rajeev Funes M.D. 02/15/2025 9:46 AM Discharge Plan Visit Data Chief Complaint: Shortness of Breath/Dyspnea Stated Complaint: SOB,ASTHMA ED Provider: Tu Garzon ED Midlevel Provider: Oxana Michaud Discharge Problem: Shortness of breath, Asthma Patient Disposition: Admitted As Inpatient Condition: Good Prescriptions Prescriptions: No Action albuterol sulfate 90 mcg/actuation HFA aerosol inhaler 1 - 2 puff INHALATION Q4 PRN (Reason: Shortness Of Breath Or Wheezing) Qty: 8.5 1RF ketoconazole 2 % shampoo 1 applic topical DIRECTED Patient Comments: 02/15- last filled 01/10 30 day supply ipratropium-albuterol 0.5 mg-3 mg(2.5 mg base)/3 mL solution for nebulization 3 ml INHALATION QID PRN (Reason: Shortness Of Breath Or Wheezing) Qty: 360 2RF Asmanex Twisthaler 220 mcg/ actuation (120) aerosol powdr breath activated 0 inh INH BID Patient Comments: filled 01/09 30 day supply sodium chloride 0.9 % solution for nebulization 1 ml inhalation Q2H PRN (Reason: shortness of breath or wheezing) Qty: 500 0RF metronidazole 0.75 % cream 1 applic topical DAILY ketoconazole 2 % cream 1 applic topical DIRECTED prednisone 10 mg tablet 10 mg PO UD Rx Instructions: 4 daily for 3 days, 3 daily for 3 days, 2 daily for three days, 1 daily for 3 days. PO DAILY; Spiriva Respimat 2.5 mcg/actuation mist 1 puff INHALATION BID Referrals Referrals: Ankush Best III, CRNP [Primary Care Provider] - Discharge Problem: Asthma Qualifiers: Asthma severity: unspecified severity Asthma persistence: unspecified Asthma complication type: unspecified Qualified Code(s): J45.909 - Unspecified asthma, uncomplicated
--- NOTE | 2025-02-15 11:54 | History & Physical Report ---
Date of Service February 15, 2025 Assessment & Plan (1) Shortness of breath: (2) Situational anxiety: Admission and Anticipated Discharge Date Admission Date: Paola Carr is a 40 Y O female with PMH of Asthma presented today with persistent shortness of breath and chest tightness for about a month. Had two ER visit in the past 1 month. Was treated with Doxycycline . and subsequently with Z pack and Augmentin . No acute findings on Chest Xray. No wheezing and decreased air entry on exam.Doesn't look like acute exacerbation of her asthma symptoms. Patient seem to be very frustrated about persistence of her symptoms. She is being admitted for further evaluation and persistence of shortness of breath and chest tightness. #Shortness of breath #Chest Tightness -Symptoms for about a month -Failed outpatient treatment with Doxycycline, Z pack and Augmentin. -Physical exam with no wheezing, B/L equal and normal air flow, no lower extremities edema -CBC; CMP:WNL; troponin negative -EKG with no acute changes -Chest Xray with no acute findings. - Recent PFTS: FVC 92% predicted, FEV1/FVC ratio 97% predicted. Normal baseline isabella with normal flow-volume loops. -Doesnot seem to be in acute exacerbation of asthma -Low risk on basis of HEART score -On Duoneb q2hr and Mometasone at home -Continue Duoneb inh q4hr -Continue Hypertonic saline neb -Continue home mometasone BID -Will consider Pulmonology consultation for persistence of her symptoms and no clear etiology identified . Discuss possible bronchoscopy #DVT prophylaxis: #Code: #Dispo: History of Present Illness Chief Complaint: Shortness of breath, Chest tightness Primary Care Provider: Ankush Best III, TYE Paola Carr is a 40 y O Female with PMH of Asthma presented today with Shortness of breath and chest tightness ongoing for about a month. She had positive rhinovirus about a 2 month ago. she started having symptoms after that. Shortness of breath started about 2 weeks after she had positive rhinovirus. She went to [facility] ER and was discharged with steroids. But had ongoing shortness shortness of breath . She visited her PCP with ongoing shortness of breath , and had thick yellow phlegm . So she was treated with Doxycycline by her PCP. But given persistence of her symptoms, she visited ER again and was given Z pack and Augmentin. She completed course of these antibiotics. She reports chest tightness which is pretty constant, She reports she cannot move the air through. And she is very frustrated because of her symptoms. She is using Duoneb inhaler every 2 hr but really not helping her at this point. She has also cough since she got Rhino virus. Cough is occasional dry and occasional productive. In addition she has feeling of something stuck in her throat. and she is not able to sleep at night due to ongoing symptoms. Denies fever, palpitation. She had follow up with Dr Ashley. 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 She has h/o PE when she was 15 as she was on control pills. She has h/o Asthma in her dad. 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 Denies any stressors currently. She wishes to be full code. Allergies Allergy/AdvReac Type Severity Reaction Status Date / Time fluoxetine [From [facility]] Allergy Verified 02/14/25 08:52 Home Medications Medication Instructions Recorded Confirmed Type ketoconazole 2 % shampoo 1 applic topical DIRECTED 07/30/21 02/15/25 History albuterol sulfate 90 mcg/actuation 1 - 2 puff inhalation Q4 PRN 06/19/24 02/15/25 Rx aerosol inhaler Shortness Of Breath Or Wheezing #8.5 grams ipratropium 0.5 mg-albuterol 3 mg 3 ml inhalation QID PRN Shortness 01/23/25 02/15/25 Rx (2.5 mg base)/3 mL nebulization Of Breath Or Wheezing #360 mL soln ketoconazole 2 % topical cream 1 applic topical DIRECTED 02/08/25 02/15/25 History metronidazole 0.75 % topical cream 1 applic topical DAILY 02/08/25 02/15/25 History mometasone 220 mcg/actuation(120 0 inh inhalation BID 02/14/25 02/15/25 History doses)breath activated powder inhaler (Asmanex Twisthaler) sodium chloride 0.9 % for 1 ml inhalation Q2H PRN shortness 02/14/25 02/15/25 Rx nebulization of breath or wheezing #500 mL prednisone 10 mg tablet 10 mg PO UD 02/15/25 02/15/25 History tiotropium bromide 2.5 1 puff inhalation BID 02/15/25 02/15/25 History mcg/actuation mist for inhalation (Spiriva Respimat) Past Med/Surg History Problem List (Updated 02/15/25 @ 12:16 by TYE Wylie) Shortness of breath (Acute) Shortness of breath Situational anxiety (Chronic) Pap smear of cervix shows high risk HPV present (Acute) Obesity (Acute) Depression (Acute) Asthma (Acute) Medical History PTSD (post-traumatic stress disorder) MTHFR mutation (methylenetetrahydrofolate reductase) Pulmonary embolism Gestational hypertension Surgical History [place] teeth removed No significant past surgical history Family History Grandfather Colorectal cancer Father Diabetes Hypertension Denies family history of Ovarian cancer Prostate cancer Myocardial infarction Breast cancer Lung cancer Stroke Social History Smoking Status: Never smoker Tobacco Type: Cigarettes Age Started Using Tobacco: 15; Age Quit Using Tobacco: 33; packs per day: 0.5; Cigarettes Per Day: 1-2/daily; Second Hand Exposure: No; Do You Dip or Chew Tobacco: No; Hx Alcohol Use: No Hx Substance Use: No Preferred Language: Swedish Communication Ability: Effective Visual Impairment: No Limitations Hearing Ability: Normal Ladle Operator Required: No marital status: / Current Living Situation: Family Current Living Situation Comment: living childrenc current occupational status: employed 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 How many Children do You have: 3 Feels Safe at Home: Yes Childhood Exposure to Second-Hand Smoke: Yes Diet: regular caffeine: No during the past year weight has: increased > 10 lbs Dental Care, Regularly: Yes Physical Activity Frequency: 5-6 Times per Week Seatbelt Use: always Sunscreen Use: Yes Assistive Devices: Glasses Review of Systems Review of Systems: As per HPI Physical Exam Physical Exam: Constitutional: Well appearing, No acute distress, PILCCOD: Negative HEENT: Atraumatic, Normocephalic, No conjunctival injection CVS: S1 S2 no murmur, Regular Rhythm, no LE edema Respiratory: BL equal air entry with NVBS. No rhonchi, wheezes, or crackles. No increased work of breathing GI: Soft, Nondistended, Nontender, Normal Bowel sounds + MSK: No gross deformities noted Skin: Warm, Dry, No rashes Neuro: Alert, Oriented to TPP, No Focal deficit Psych: Tearful and frustrated about her ongoing symptoms Results & Data Results & Data Vital Signs (Past 12 Hours) Vital Signs Temp Pulse Resp BP Pulse Ox O2 Del Method 02/15/25 11:00 82 17 100 02/15/25 10:30 141/92 H 02/15/25 10:30 141/92 H 02/15/25 10:30 86 14 141/92 H 96 02/15/25 10:00 89 19 104/86 97 02/15/25 09:31 124/82 02/15/25 08:30 84 18 99 02/15/25 08:00 79 12 100 02/15/25 07:56 Room Air 02/15/25 07:50 143/89 H 02/15/25 07:46 114 H 02/15/25 07:33 96 H 15 142/94 H 100 02/15/25 07:15 36.6 C 99 H 22 164/99 H 99 Room Air Supervising Physician Co-Signing Physician Notes Patient seen and examined, chart reviewed, case discussed with Dr. Ferguson and I agree with the assessment and plan as above except as otherwise noted Labs and images reviewed Per Signout/REview: Paola is a 40yo F with a PMHx of asthma who presented with recurrent chest tightness and dyspnea. Worsening dyspnea following rhinovirus 2 months ago. Sx started about 2 weeks after recovering. Did improve with steroid tx from [facility], but did not have durable improvement. Subsequently treated with doxycycline, no improvement. Treated with Z-pack and Augmentin subsequently with no improvement. Presents again today with chest tightness, dyspnea, and nighttime awakening. Has a feeling of congestion in her chest that she cannot expectorate. She is not hypoxic She is not febrile She has a past MHx of PE. Mild posterior lung field wheezing. She is having good air movement. No leukocytosis, D-Dimer is negative, no eosinophilia, biofire is negative. CTA-PE 01/31/2025 showed no pneumonia, trace b/l pleural effusions, probably hepatic steatosis. NO PE were noted; however subsegmental pulmonary arteries suboptimally assessed due to artifact. No leg swelling. CXR on ER evaluation shows NO pulmonary edema, airspace consolidation, pleural effusion, or pneumothorax. HS-trop NEGATIVE. No EKG changes. EKG is nsr, no ST/T wave changes. When she has chest discomfort when short of breath feels it is more of a global tightness, does not radiate, and is not a substernal pressure. Heart Score Low risk. She is using duoneb q2h, mometasone. Not using spiriva currently PFTS: FVC 92% predicted, FEV1/FVC ratio 97% predicted. Normal baseline isabella with normal flow-volume loops. Paola is seen at the bedside, and is tearful describing her symptoms. She is reassured that she did not have any large blood clots seen, that her oxygenation has been adequate in the hospital, and her labs have overall been normal however she notes that her breathing clinically is not normal and she cannot get past a constant feeling of shortness of breath which is extremely distressing to her. She also notes that it provokes her anxiety, but she has lived with anxiety for a long time has good insight to this and feels the shortness of breath while provoking it is completely separate and not triggered by or related to her anxiety itself. She reports that she has been needing to use a nebulizer at least every 2-4 hours to breathe comfortably, and her only relief has been around short periods when she has coughed up some thick mucus although in general expectorants have only made it feel like she is more congested and she has not actually been able to expectorate. Due to her symptoms being very limiting to her at home, persistent and recurring she would like admission with pulmonology consult as she feels all other measures have not helped her improve and she is having symptoms severely limiting to her at home. ? Postviral with mucous plugging. She did seem to feel better when she was able to expectorate some mucus however has not been able to do this reliably since. She has good air movement and does not have significant wheezing on admission exam, does not appear to have a severe ongoing asthma exacerbation at time of assessment and her last PFTs were normal. Subsegmental PEs could cause persistent feelings of dyspnea however her last CTA while somewhat slightly limited by artifact was negative and her D-dimer here is negative. She has not improved with multiple rounds of antibiotic and steroid treatment. BioFire on admission is negative. She does not smoke. Chest x-ray does not show any acute process or lobar collapse. She is not hypercarbic. Low suspicion for cardiac etiology as her symptoms while intermittently limiting her exercise are not consistently exacerbated by it, heart score is low risk, and despite several hours of feeling that her chest was tight she has an undetectable troponin and no EKG changes. She does not feel her chest discomfort is cardiac or pressure in quality, and more shortness of breath and difficulty expectorating. She has had multiple recurrent ER visits due to inadequate improvement in symptoms. Hypertonic saline, nebulized Steroid taper DuoNebs every 2every 4 hours as needed Pulmonology consult, patient had previously discussed a possible bronchoscopy as next up after symptoms did not improve/resolve Agree with above
[2025-02-15] MEDS: ALBUT/IPRATROP 3MG/0.5MG NEB 3 ML VIAL INH SCH (15:08)
[2025-02-15] MEDS: ALBUT/IPRATROP 3MG/0.5MG NEB 3 ML VIAL INH STA (17:24)
[2025-02-15] MEDS: SODIUM CHLOR 7% 4 ML NEB ONE (17:33)
[2025-02-15] MEDS: SODIUM CHLOR 7% 4 ML NEB NEB SCH (17:33)
[2025-02-15] MEDS ORDERED: ACETAMINOPHEN 325 MG TAB PO PRN (18:36)
[2025-02-15] MEDS ORDERED: MELATONIN 3 MG TAB PO PRN (18:36)
[2025-02-15] MEDS ORDERED: POLYETHYLENE (MIRALAX) 17 GM PACK PO PRN (18:36)
[2025-02-15] MEDS ORDERED: ONDANSETRON INJ 2 MG/ML 2 ML VIAL IV PRN (18:36)
[2025-02-15] MEDS ORDERED: ALUMINUM/MAGNESIUM SUSP 30 ML UDC PO PRN (18:36)
[2025-02-15] MEDS: MAGNESIUM SULFATE / D5W 1 GM/100 ML BAG IV SCH (19:46)
[2025-02-15] MEDS: ALBUT/IPRATROP 3MG/0.5MG NEB 3 ML VIAL NEB PRN (20:34)
[2025-02-15] MEDS ORDERED: ALBUTEROL HFA 8 GM INHALER INH PRN (20:56)
--- NOTE | 2025-02-15 21:41 | Electrocardiogram Report ---
Test Reason : Blood Pressure : */* mmHG Vent. Rate : 86 BPM Atrial Rate : 86 BPM P-R Int : 126 ms QRS Dur : 92 ms QT Int : 368 ms P-R-T Axes : 37 45 40 degrees QTcB Int : 440 ms Normal sinus rhythm Normal ECG When compared with ECG of 14-Jan-2018 23:54, No significant change was found Confirmed by Slick Greenfield ([id number]) on 02/15/2025 9:41:22 PM Referred By: REFERRED SELF Confirmed By: Slick Greenfield
[2025-02-15] MEDS: LORazepam 0.5 MG TAB PO ONE (22:26)
[2025-02-15] MEDS: guaiFENesin 600 MG TABCR PO SCH (22:26)
[2025-02-15] MEDS: OPTIRAY 320 125ml IV ONE (23:49)
--- NOTE | 2025-02-16 00:09 | Communication Note ---
Date of Service: February 16, 2025 Alerted by nursing staff around 23:30 02/15 that pt very upset and would like to be examined by the administration vice president physician or will leave AMA and go to another facility. Pt seen at beside. She is sitting on the side of the bed hyperventilating and tearful upon entry into the room. She states her asthma exac have never been like this before and she feels like she cannot breathe. She states that although not breathing well is making her anxious, she does not want the ativan that is in as prn for her. CTA chest and CT neck ordered to further evaluate breathing difficulty as physical exam was unrevealing with good lung sounds without wheezing. Pt quite worried about steriod as she was on taper at home and not given a dose on 02/15 due to admission to the hospital. 30mg prednisone one time dose given. CTA chest negative for PE. CT neck positive for palatine tonsil enlargement causing effacement of the oropharynx on imaging. Vitals continue to be stable overnight so defer ENT referral on an emergent basis but consider this during the day. Resident Activity Tracking Resident Involvement: Resident Care Provided Care Provided: Adult Hospital Medicine
--- NOTE | 2025-02-16 01:47 | CT Scan Report ---
EXAM: CT angio chest PE protocol CLINICAL HISTORY: PE TECHNIQUE: Contiguous axial images were obtained from the neck base through the upper abdomen following intravenous administration of iodinated contrast material. Angiographic images were processed, 3D MIP images were acquired for interpretation. If IV contrast material had not been administered, the likelihood of detecting abnormalities relevant to the patient's condition would have been substantially decreased. Coronal and sagittal 3-D MIPs were likewise performed and indicated to increase the sensitivity of detectin diffuse clinically relevant pathology. CT scan was performed according to ALARA (as low as reasonably achievable). 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 FINDINGS: Minimal bilateral pleural effusion with basal subsegmental collapse of both lower lobes are seen. Adequate contrast bolus without evidence of pulmonary embolism. The central airways are patent. The lungs are clear. The heart, aorta, and pulmonary arteries are of normal size and configuration. There are no appreciable coronary artery and aortic atherosclerotic calcifications. No pericardial effusion is identified. The thyroid is unremarkable. No mediastinal, hilar, or axillary lymphadenopathy is noted. No suspicious lytic or sclerotic osseous lesions are identified. IMPRESSION: No evidence of pulmonary embolism Minimal bilateral pleural effusion with basal subsegmental collapse of both lower lobes are seen-mild decrease. No other new interval abnormality since prior study. Electronically signed by Mario Johnston 02-16-2025 01:47 AM
--- NOTE | 2025-02-16 01:49 | CT Scan Report ---
EXAM: CT soft tissue neck wo con CLINICAL HISTORY: difficulty breathing TECHNIQUE: Computed tomography of the neck was performed without intravenous contrast. Contiguous axial images were obtained. Reformatted coronal and sagittal images were also reviewed. If IV contrast material had not been administered, the likelihood of detecting abnormalities relevant to the patient's condition would have been substantially decreased. CT scan was performed according to ALARA (as low as reasonably achievable). COMPARISON: NONE. FINDINGS: Mildly enlarged bilateral palatine tonsil.- causes effacement of naso-oropharyngeal airway Mildly thickened soft palate. Included intracranial substances, orbits, and paranasal sinuses are grossly unremarkable. oral cavity, hypopharynx and larynx are grossly unremarkable. Parotid, submandibular and thyroid glands are grossly unremarkable. Scattered bilateral jugulo-digastric lymph nodes are present however, none are pathologically enlarged. Visualized included lung apices are grossly clear, and no acute osseous abnormality detected. IMPRESSION: Mildly enlarged bilateral palatine tonsil.- causes effacement of oropharyngeal airway- clinical correlation suggested. Mildly thickened soft palate. Electronically signed by Mario Johnston 02-16-2025 01:48 AM
[2025-02-16] MEDS: ALBUT/IPRATROP 3MG/0.5MG NEB 3 ML VIAL NEB PRN (08:38)
--- NOTE | 2025-02-16 09:19 | Pulmonary Consultation ---
Date of Consultation February 16, 2025 Assessment & Plan (1) Shortness of breath: (2) Asthma: Asthma complication type: unspecified Asthma persistence: u nspecified Asthma severity: unspecified severity Qualified Code(s): J45.909 - Unspecified asthma, uncomplicated (3) Obesity: Plan 40-year-old female admitted to the hospital for shortness of breath Past medical history: Anxiety/depression, history of PE at the age of 15 CT chest 02/16/2025 personally reviewed: No pulmonary nodules No pulmonary parenchymal abnormality minimal bilateral pleural effusion No significant mediastinal lymphadenopathy Spirometry 02/01/2025 personally reviewed: No obstructive lung dysfunction, flow- volume loop within normal limits FVC 3.51 L 92%, FEV1 2.81 L 91%, FEV1/FVC 80% -- Shortness of breath Etiology is not clear Respiratory BioFire negative for everything on 02/15/2025 Absolute eosinophil count 70 on 02/15/2025, as high as 370 on 01/14/2018 Even though patient does have history of childhood asthma Pulmonary function tests did not show any obstruction, lungs have always been clear, CT chest does not show any pulmonary abnormality The probability of shortness of being pulmonary in origin is on the lower side For the time being I would say continue with inhaled bronchodilators Anxiety with history of PTSD might be playing a role A trial of Lexapro could be thought of I have ordered RAST panel as well as IgE to be drawn tomorrow --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 Can consider doing a pulmonary function test with DLCO I do highly recommend patient to have outpatient polysomnography done as she is high risk for sleep apnea Patient was emotional during the interrogation and examination Emotional support was given to the patient. Trial of Lexapro could be thought of, will defer to primary team. I spent more than 75 minutes looking in the chart, images, discussing the plan of care with the patient, RN as well as primary team Please note the above document was generated using voice recognition software. It may contain grammatical, syntax or spelling errors.Any formal questions or concerns about the content, text or information contained within the body of this dictation should be directly addressed to the provider for clarification. History of Present Illness Attending Physician: Ivan Calle MD History of Present Illness 40-year-old female admitted to the hospital for shortness of breath Past medical history: Anxiety/depression, history of PE at the age of 15 [address] up with [address]. Ashley as an outpatient, he saw the patient last on 02/01/2025 Please make note that the patient was emotional during the encounter, emotional support was given to the patient Patient states that she was diagnosed with rhinovirus around November of this year and since then she has been having issues with her breathing She has been given multiple courses of antibiotics as well as steroids with no relief. She still complains of phlegm and has difficulty bringing up the phlegm. When she does bring up the phlegm it is clear to green in color. Denies any hemoptysis. No dysuria, no diarrhea No unusual headache or blurry vision Was on Trelegy before currently taking Asmanex on a daily basis. She was put on saline nebulized to help her remember phlegm which she found benefit from. Does complain of snoring at night. Denies any significant stress in her life. No change in the surrounding especially no new detergent, no new plants, has same household Has a dog at home which she has had for 40 years Social history: Lifetime non-smoker. Works from home Pets: Dog for more than 4 years Does have childhood history of asthma, strong family history of asthma in father History of lung cancer in the family Allergies Allergy/AdvReac Type Severity Reaction Status Date / Time fluoxetine [From [facility]] Allergy Verified 02/14/25 08:52 Home Medications Medication Instructions Recorded Confirmed Type ketoconazole 2 % shampoo 1 applic topical DIRECTED 07/30/21 02/15/25 History albuterol sulfate 90 mcg/actuation 1 - 2 puff inhalation Q4 PRN 06/19/24 02/15/25 Rx aerosol inhaler Shortness Of Breath Or Wheezing #8.5 grams ipratropium 0.5 mg-albuterol 3 mg 3 ml inhalation QID PRN Shortness 01/23/25 02/15/25 Rx (2.5 mg base)/3 mL nebulization Of Breath Or Wheezing #360 mL soln ketoconazole 2 % topical cream 1 applic topical DIRECTED 02/08/25 02/15/25 History metronidazole 0.75 % topical cream 1 applic topical DAILY 02/08/25 02/15/25 History mometasone 220 mcg/actuation(120 0 inh inhalation BID 02/14/25 02/15/25 History doses)breath activated powder inhaler (Asmanex Twisthaler) sodium chloride 0.9 % for 1 ml inhalation Q2H PRN shortness 02/14/25 02/15/25 Rx nebulization of breath or wheezing #500 mL prednisone 10 mg tablet 10 mg PO UD 02/15/25 02/15/25 History tiotropium bromide 2.5 1 puff inhalation BID 02/15/25 02/15/25 History mcg/actuation mist for inhalation (Spiriva Respimat) Patient History Medical History PTSD (post-traumatic stress disorder) MTHFR mutation (methylenetetrahydrofolate reductase) Pulmonary embolism Gestational hypertension Surgical History [place] teeth removed No significant past surgical history Family History Grandfather Colorectal cancer Father Diabetes Hypertension Denies family history of Ovarian cancer Prostate cancer Myocardial infarction Breast cancer Lung cancer Stroke Social History Smoking Status: Former smoker Tobacco Type: Cigarettes Age Started Using Tobacco: 15; Age Quit Using Tobacco: 33; packs per day: 0.5; Cigarettes Per Day: 1-2/daily; Smoking End Date: 2015; Second Hand Exposure: No; Do You Dip or Chew Tobacco: No; Hx Alcohol Use: No Hx Substance Use: No Preferred Language: Greenlandic Communication Ability: Effective Visual Impairment: No Limitations Hearing Ability: Normal Military Lawyer Required: No Beliefs That Will Affect Care: None marital status: / Current Living Situation: Family Current Living Situation Comment: living childrenc current occupational status: employed 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 How many Children do You have: 3 Other Information That Helps Us Care for You: No Feels Safe at Home: Yes Safety Concerns: Feels Safe At This Time Childhood Exposure to Second-Hand Smoke: Yes Diet: regular caffeine: No during the past year weight has: increased > 10 lbs Dental Care, Regularly: Yes Physical Activity Frequency: 5-6 Times per Week Seatbelt Use: always Sunscreen Use: Yes Assistive Devices: Glasses Review of Systems 2 Review of Systems: All systems reviewed & are unremarkable except as noted in HPI & below Physical Exam 2 Physical Exam: Constitutional: No acute distress HEENT: EOMI, PERRLA, no stridor, short thick neck Respiratory system: Good air entry bilaterally, no wheeze, no rhonchi, no crackles CVS: S1-S2 positive, no murmurs or gallops Abdomen: Soft, nontender, nondistended, positive bowel sounds x4, obese Extremities: +2 pulses bilaterally radialis/ dorsalis pedis, no cyanosis, no edema Neuro: Awake alert oriented x3 Psych: Patient was emotional during the visit G/U: No Mcmullen Skin: no rashes, warm and dry Lymphatic: no cervical or axillary lymphadenopathy Results & Data Results & Data Vital Signs (Past 12 Hours) Vital Signs Temp Pulse Resp BP Pulse Ox O2 Del Method O2 Flow Rate 02/16/25 08:39 93 H 97 Room Air 02/16/25 07:21 36.7 C 91 H 16 127/83 94 Room Air 02/16/25 04:45 101 H 26 H 99 Room Air 02/15/25 23:54 87 30 H 99 Room Air 02/15/25 21:51 36.6 C 93 H 18 138/89 98 Nasal Cannula 2 Laboratory Results 02/15/25 07:49 02/15/25 07:49 PG Care Time/CCT Total # of Minutes Spent Total Time Spent with Patient: Total time spent is greater than 50% in coordination of care (as documented) at patient's floor/unit and/or counseling patient: [place] [address] INT INP/OBS CARE 3/75MIN Patient Type New Diagnoses Shortness of breath R06.02 Severe persistent asthma with status asthmaticus J45.909 Asthma complication type: unspecified Asthma persistence: unspecified Asthma severity: unspecified severity Obesity E66.9
[2025-02-16] MEDS: FLUTICASONE FUROATE 100MCG 14 PUFFS/INHALER INH SCH (11:00)
--- NOTE | 2025-02-16 13:56 | Hospitalist Progress Note ---
Date of Service February 16, 2025 Assessment & Plan (1) Shortness of breath: (2) Situational anxiety: Plan #Shortness of breath #Chest Tightness -Symptoms for about a month -s/p Doxycycline, Z pack and Augmentin. -Physical exam with no wheezing, B/L equal and normal air flow, no lower extremities edema -Chest Xray with no acute findings. -Recent PFTS: FVC 92% predicted, FEV1/FVC ratio 97% predicted. Normal baseline isabella with normal flow-volume loops. -On Duoneb q2hr and Mometasone at home Plan -Continue Duoneb q4hr -albuterol prn -Continue fluticasone inhaler as she notes improvement -chest percussion bid -Pulmonology on board, appreciate recs -plan for 2D echo to evaluate right heart pressures -consider outpatient PFTs -consider outpatient polysomnography for suspected AMISH -for AMISH, will trial CPAP tonight -dc hypertonic saline #Anxiety -as per pt, her anxiety has never caused respiratory symptoms in past -suspect dyspnea and being in hospital environment is causing the anxiety -ativan 0.5mg prn -consider starting lexapro as outpatient if pt agreeable Code: Full code DVT prophylaxis: ambulation Admission and Anticipated Discharge Date Admission Date: February 15, 2025 Supervising Physician Co-Signing Physician Notes Paola seen and examined, chart reviewed, case discussed with Dr. Luis and I agree with the assessment and plan as above except as otherwise noted above. All labs and images reviewed CTAB. Very anxious on morning assessment, had a difficult night with an exacerbation after a neb treatment. On afternoon revisit clinically feels improved. No wheezing on exam. She feels that the fluticasone gave her significant improvement and would like to continue this instead of mometasone. Duonebs continued. Echo is pending. She would like to trial CPAP tonight, and will have f/u AMISH sleep study eval. No fevers. Appreciate pulm consultation. Reviewed anxiety component with ?panic. Paola reports she has had anxiety for a long time, and acknowledges the increased anxiety with her current sx and is appreciative of discussion but prefers to defer SSRI treatment at this time. She notes she is very familiar with anxiety and tx, and had good insight into this and feels it is exacerbated by her sx, but not the primary cause of these. She will continue to follow as outpatient, and is aware of ~6week lag to benefit should she wish to start a SSRI in the future. Spot blood pressure elevated; however, overall BP within goal and has a white coat component. Recommend serial checks, if consistently >130/80 when calm and at rest on repeat checks as outpt, or if consistently >180 inpatient with other factors well controlled would treat at that time. BPs has been ~120s/80s Subjective Overnight pt was evaluated for worsening dyspnea. CT was ordered that showed mildly enlarged palatine tonsils that causes effacement of oropharyngeal airway. Today at bedside, she appears tearful and frustrated with her symptoms. She said she is feeling a little better and notes improvement after duonebs and steroid dose. She says her chest feels "tight" due to the SOB. Pt recently had a URI. Denies fever, CP, abdominal pain. Pt seen again this afternoon. Reports improvement after using fluticasone furoa te inhaler and would like to continue it moving forward. Review of Systems Review of Systems: per HPI Physical Exam Physical Exam: GA: well groomed, well nourished, appears anxious and tearful. AAOx3 HEENT: head normocephalic, atraumatic. EOMI RESP: vesicular breath sounds b/l. No wheezes, rhonchi, or rales CARDIOVASCULAR: S1 and S2 heard. No murmurs, rubs, or gallops. Radial pulses 2+ b/l RRR MSK: no gross abnormalities or focal deficits SKIN: warm, dry, no edema NEURO: no focal deficits. speech fluent Results & Data Results & Data Vital Signs (Past 12 Hours) Vital Signs Temp Pulse Resp BP Pulse Ox O2 Del Method 02/16/25 13:41 101 H 16 98 Room Air 02/16/25 10:20 Room Air 02/16/25 08:39 93 H 97 Room Air 02/16/25 07:21 36.7 C 91 H 16 127/83 94 Room Air 02/16/25 04:45 101 H 26 H 99 Room Air Resident Activity Tracking Resident Involvement: Resident Care Provided Care Provided: Adult [facility] Medicine
[2025-02-16] MEDS: ACETYLCYSTEINE 20% INHAL SOLN 4ML ***DISPENSED BY RESP. INH ONE (17:16)
[2025-02-17 08:20] VITALS: BP 164/75; TEMP 98.4
--- NOTE | 2025-02-17 09:43 | Pulmonology Progress Note ---
Date of Service February 17, 2025 Assessment & Plan (1) Shortness of breath: (2) Asthma: Asthma complication type: unspecified Asthma persistence: u nspecified Asthma severity: unspecified severity Qualified Code(s): J45.909 - Unspecified asthma, uncomplicated (3) Obesity: (4) Pulmonary hypertension: Plan 40-year-old female admitted to the hospital for shortness of breath Past medical history: Anxiety/depression, history of PE at the age of 15 CT chest 02/16/2025 personally reviewed: No pulmonary nodules No pulmonary parenchymal abnormality minimal bilateral pleural effusion No significant mediastinal lymphadenopathy Spirometry 02/01/2025 personally reviewed: No obstructive lung dysfunction, flow- volume loop within normal limits FVC 3.51 L 92%, FEV1 2.81 L 91%, FEV1/FVC 80% 2D echo 02/17/2025: EF 55-60%, borderline concentric LVH, RV normal in size and function, RVSP 30-40 mmHg, mild TR -- Shortness of breath Etiology is not clear Respiratory BioFire negative for everything on 02/15/2025 Absolute eosinophil count 70 on 02/15/2025, as high as 370 on 01/14/2018 Even though patient does have history of childhood asthma Pulmonary function tests did not show any obstruction, lungs have always been clear, CT chest does not show any pulmonary abnormality The probability of shortness of being pulmonary in origin is on the lower side For the time being I would say continue with inhaled bronchodilators Anxiety with history of PTSD might be playing a role A trial of Lexapro could be thought of I have ordered RAST panel as well as IgE to be drawn tomorrow --Probable AMISH BMI 37 Positive snoring at night --Pulmonary hypertension Mild Etiology could be untreated AMISH Recommend outpatient polysomnography and full pulmonary function test to look at DLCO --History of PE at the age of 15 Deemed provoked secondary to control pills Plan: I do highly recommend patient to have outpatient polysomnography done as she is high risk for sleep apnea Recommend outpatient full pulmonary function test to look at DLCO and lung volumes Case was discussed with RN at bedside Please note the above document was generated using voice recognition software. It may contain grammatical, syntax or spelling errors.Any formal questions or concerns about the content, text or information contained within the body of this dictation should be directly addressed to the provider for clarification. Admission and Anticipated Discharge Date Admission Date: February 15, 2025 Subjective Patient seen and examined at bedside. No acute distress, no adverse events overnight Overall this she stated that although she still has shortness of breath on exertion it seems to be little bit better than before She was in a pleasant mood today. Not anxious. Coughing up clear phlegm. Denies any dizziness or palpitation No nausea or vomiting Fair appetite She was excited to go home today. Review of Systems 2 Review of Systems: All systems reviewed & are unremarkable except as noted in Subjective Physical Exam 2 Physical Exam: Constitutional: No acute distress HEENT: EOMI, PERRLA, no stridor, short thick neck Respiratory system: Good air entry bilaterally, no wheeze, no rhonchi, no crackles CVS: S1-S2 positive, no murmurs or gallops Abdomen: Soft, nontender, nondistended, positive bowel sounds x4, obese Extremities: +2 pulses bilaterally radialis/ dorsalis pedis, no cyanosis, no edema Neuro: Awake alert oriented x3 Psych: Normal mood and affect G/U: No Mcmullen Skin: no rashes, warm and dry Lymphatic: no cervical or axillary lymphadenopathy Results & Data Results & Data Vital Signs (Past 12 Hours) Vital Signs Temp Pulse Resp BP Pulse Ox O2 Del Method 02/17/25 09:34 Room Air 02/17/25 07:11 36.9 C 67 16 164/75 H 96 Room Air 02/17/25 07:05 36.8 C 84 16 140/84 97 Room Air 02/17/25 05:20 100 H 18 98 Room Air 02/16/25 22:53 36.8 C 84 19 131/75 98 Room Air 02/16/25 22:04 78 16 96 Room Air Laboratory Results 02/15/25 07:49 02/15/25 07:49 PG Care Time/CCT Total # of Minutes Spent Total Time Spent with Patient: Total time spent is greater than 50% in coordination of care (as documented) at patient's floor/unit and/or counseling patient: Coding Level of Care Code 89957 SUB INP/OBS CARE 2/35MIN Diagnoses Shortness of breath R06.02 Severe persistent asthma with status asthmaticus J45.909 Asthma complication type: unspecified Asthma persistence: unspecified Asthma severity: unspecified severity Obesity E66.9 Pulmonary hypertension I27.20
--- NOTE | 2025-02-17 10:23 | Discharge Summary ---
Date of Service February 17, 2025 Admission HPI Per Admitting Provider BrunoPaola is a 40 y O Female with PMH of Asthma presented today with Shortness of breath and chest tightness ongoing for about a month. She had positive rhinovirus about a 2 month ago. she started having symptoms after that. Shortness of breath started about 2 weeks after she had positive rhinovirus. She went to [facility] ER and was discharged with steroids. But had ongoing shortness shortness of breath . She visited her PCP with ongoing shortness of breath , and had thick yellow phlegm . So she was treated with Doxycycline by her PCP. But given persistence of her symptoms, she visited ER again and was given Z pack and Augmentin. She completed course of these antibiotics. She reports chest tightness which is pretty constant, She reports she cannot move the air through. And she is very frustrated because of her symptoms. She is using Duoneb inhaler every 2 hr but really not helping her at this point. She has also cough since she got Rhino virus. Cough is occasional dry and occasional productive. In addition she has feeling of something stuck in her throat. and she is not able to sleep at night due to ongoing symptoms. Denies fever, palpitation. She had follow up with Dr Ashley. 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 She has h/o PE when she was 15 as she was on control pills. She has h/o Asthma in her dad. 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 Denies any stressors currently. She wishes to be full code. Principal Diagnosis Shortness of Breath secondary to unclear etiology Discharge Exam GA: well groomed, well nourished, in no apparent distress. AAOx3 HEENT: head normocephalic, atraumatic. EOMI RESP: vesicular breath sounds b/l. No wheezes, rhonchi, or rales CARDIOVASCULAR: S1 and S2 heard. No murmurs, rubs, or gallops. Radial pulses 2+ b/l RRR MSK: no gross abnormalities or focal deficits SKIN: warm, dry, no edema NEURO: no focal deficits. speech fluent Discharge Data Allergies Allergy/AdvReac Type Severity Reaction Status Date / Time fluoxetine [From Prozac] Allergy Verified 02/14/25 08:52 Consultations 02/15/25 12:13 ED Decision to Admit Stat 02/15/25 18:36 Consult Pulmonology Routine Ordered Studies 02/15/25 23:45 CT angio chest PE protocol Stat 02/16/25 00:07 CT neck soft tissues [CT soft tissue neck wo con] Stat Hospital Course (1) Shortness of breath: (2) Situational anxiety: Plan #Shortness of breath #Chest Tightness -Symptoms for about a month -s/p Doxycycline, Z pack and Augmentin. -Physical exam with no wheezing, B/L equal and normal air flow, no lower extremities edema -Chest Xray with no acute findings. -Recent PFTS: FVC 92% predicted, FEV1/FVC ratio 97% predicted. Normal baseline isabella with normal flow-volume loops. -On Duoneb q2hr and Mometasone at home Plan -albuterol prn -Continue fluticasone inhaler, stop mometasone inhaler -resume at home inhaler regimen besides changes noted above -f/u with PCP and Pulmonology outpatient -Pulmonology on board, appreciate recs -2D echo pending -allergy and legionella labs pending -consider outpatient PFTs -consider outpatient polysomnography for suspected AMISH #Anxiety -suspect dyspnea and being in hospital environment caused anxiety flare -consider starting lexapro as outpatient if pt agreeable, she understands it may take 6-8weeks to see improvement. Total Time Total Time Spent Total Time Spent (In Minutes): see attending attestation Discharge Plan Discharge Items Patient Disposition: Home - Self-Care Reason For Visit: SOB,CHEST TIGHTNESS Discharge Diagnosis: shortness of breath Condition on Discharge: Good Activity: Resume your previous activity Non-emergency contact: Primary Care Provider Call non-emergency contact if: your symptoms worsen and you have a fever Follow-up/Referrals: Ankush Best III, CRNP [Primary Care Provider] - Javier Dodd MD, FCCP [Physician] - Diet: Regular Addtl Attending Provider Instructions: You were admitted due to shortness of breath. It is unclear at this time to the exact etiology of your symptoms but it is suspected that a virus may have caused you to have an asthma exacerbation. You were started on appropriate inhaler regimens. Imaging and labs have not shown any life threatening cause to your symptoms. At the time of discharge, there are some labs pending that you will follow up with your primary care doctor and pulmonology to discuss. Please follow up with your PCP within the next 1-2 weeks to discuss your hospital stay. You may also discuss with them a sleep study for suspected obstructive sleep apnea to make sure your are properly evaluated and treated. Please also discuss with them any concerns you have regarding anxiety or mental health you may have. Please follow up with Dr. Dodd, Pulmonology, on an outpatient basis. At that time, through shared decision making, you and Dr. Dodd will discuss changes to your asthma regimen and any addition testing that is recommended. NEW MEDICATIONS: Fluticasone Inhaler: 1 puff twice daily STOP Asmanex Inhaler Continue your other medications as previously prescribed. Continue the steroid taper as previously prescribed. Contact your PCP if your symptoms return or worsen. Call 911 or go to the ER if you experience any of the following: Sudden, severe abdominal pain or nausea/vomiting Severe chest pain, or chest pain that radiates (moves) to your jaw or arm Sudden, severe shortness of breath or difficulty breathing Thank you for allowing us to participate in your care. Pending Studies at Discharge: Yes Stand-Alone Forms: [facility], Smoking Cessation Medications and DC Order Prescriptions: New fluticasone furoate [Arnuity Ellipta] 100 mcg/actuation Blister With Device 2 inh inhalation DAILY Qty: 30 0RF Continued albuterol sulfate 90 mcg/actuation HFA aerosol inhaler 1 - 2 puff INHALATION Q4 PRN (Reason: Shortness Of Breath Or Wheezing) Qty: 8.5 1RF ketoconazole 2 % shampoo 1 applic topical DIRECTED Patient Comments: 02/15- last filled 01/10 30 day supply ipratropium-albuterol 0.5 mg-3 mg(2.5 mg base)/3 mL solution for nebulization 3 ml INHALATION QID PRN (Reason: Shortness Of Breath Or Wheezing) Qty: 360 2RF sodium chloride 0.9 % solution for nebulization 1 ml inhalation Q2H PRN (Reason: shortness of breath or wheezing) Qty: 500 0R F metronidazole 0.75 % cream 1 applic topical DAILY ketoconazole 2 % cream 1 applic topical DIRECTED prednisone 10 mg tablet 10 mg PO UD Rx Instructions: 4 daily for 3 days, 3 daily for 3 days, 2 daily for three days, 1 daily for 3 days. PO DAILY; Spiriva Respimat 2.5 mcg/actuation mist 1 puff INHALATION BID Discontinued Asmanex Twisthaler 220 mcg/ actuation (120) aerosol powdr breath activated 0 inh INH BID Patient Comments: filled 01/09 30 day supply Discharge Orders: Discharge Order (Routine); Ordered 02/17/25 Ordered By: Chris Chavez/Other Patient Handouts: Using an Incentive Spirometer, Deep Breathing, Acute Severe Asthma Admission Data Admit Date/Time: 02/15/25 12:09 Attending Provider: Ivan Calle Admit Provider: Brooke Ferguson Primary Care Provider: Ankush Best III Other Providers: Ivan Calle; Javier Dodd Other Interventions: Discharge Summary Assessment (RN) Last Done: 02/17/25 11:35 Supervising Physician Co-Signing Physician Notes Patient seen and examined, chart reviewed, case discussed with Dr. Luis and I agree with the assessment and plan as above except as otherwise noted above. General: A&Ox3. NAD. Cooperative. HEENT: Atraumatic, normocephalic. Vision/hearing intact. No stridor Pulm: CTAB A&P. -wheezes, -rales, -rhonchi. Symmetrical chest rise. No increase work of breathing. No respiratory distress. 30 minutes spend in consultation with patient, review of case with resident provider. Asthma inhaler switched at pt request, feels better with switch to flovent. Feeling much better at time of d/c. RAST panel and outpatietn followup for isabella + DLCO. Followup to PCP. Agree w/ above Resident Activity Tracking Resident Involvement: Resident Care Provided Care Provided: Adult Hospital Medicine
[2025-02-17 10:29] VITALS: PULSE 93; RESP 15; O2SAT 99
[2025-02-19 15:17] LABS: Cockroach IgE Ab 0.11 kU/L; Cottonwood Class 0; Mouse Urine Protein Class 0; Mouse Urine Protein IgE <0.10 kU/L; Mugwort (W6) IgE <0.10 kU/L; Oak-White Class 0; Oak-White IgE <0.10 kU/L; Sycamore Class 0; Sycamore IgE <0.10 kU/L
== END 2025-02-17 12:21 | disposition home or self-care (01) | DRG 203 ==
LOC: ED 07:10 → 3W 12:09